=== PATIENT | female | born 1995 ===

== ENCOUNTER 2016-03-19 11:03 | Emergency (ER) | payer SELFPAY ==
[2016-03-19 11:19] VITALS: BP 131/74
--- NOTE | 2016-03-19 12:01 | UC ---
Abdominal Pain Female HPI - HPI Summary HPI Summary: 3 EPISODES OF EPIGASTRIC PAIN OVER THE PAST SEVERAL MONTHS. HAS BEEN DIAGNOSED WITH GASTRITIS IN THE PAST. OMEPRAZOLE HELPS BUT SX RETURN. SX ARE WORSE AFTER EATING AND WHEN LAYING DOWN. HAS NAUSEA AND VOMITED 3 TIMES OVER PAST WEEK AND A HALF. - History of Current Complaint Chief Complaint: UCGI Stated Complaint: STOMACH COMPLAINT Time Seen by Provider: 03/19/16 11:59 Hx Obtained From: Patient Hx Last Menstrual Period: pcos, 01/12/16 Onset/Duration: Gradual Onset, Lasting Weeks, Still Present Timing: Intermittent Episodes Lasting: Severity Initially: Moderate Severity Currently: Moderate Pain Intensity: 0 Pain Scale Used: 0-10 Numeric Location: Epigastric Radiates: Yes Radiates to: Chest Character: Burning Aggravating Factor(s): Food, Other: - LAYING FLAT Alleviating Factor(s): Antacids Associated Signs and Symptoms: Positive: Decreased Appetite, Nausea, Vomiting Allergies/Adverse Reactions: Allergies Allergy/AdvReac Type Severity Reaction Status Date / Time No Known Allergies Allergy Verified 03/19/16 11:19 Home Medications: Home Medications Bismuth Subsalicylate [Pepto Bismol] 262 mg PO 03/19/16 [History] PMH/Surg Hx/FS Hx/Imm Hx Endocrine History Of: Denies: Diabetes, Thyroid Disease Cardiovascular History Of: Denies: Cardiac Disorders, Hypertension Respiratory History Of: Denies: COPD, Asthma GI/ History Of: Denies: Ulcer - Surgical History Surgical History: None - Family History Known Family History: Negative: Hypertension, Diabetes - Social History Alcohol Use: Occasionally Substance Use Type: Marijuana Substance Use Comment - Amount & Last Used: qod Smoking Status (MU): Never Smoked Tobacco Review of Systems Constitutional: Negative Respiratory: Negative Cardiovascular: Negative Gastrointestinal: Abdominal Pain, Vomiting, Other - NAUSEA Genitourinary: Negative All Other Systems Reviewed And Are Negative: Yes Physical Exam Triage Information Reviewed: Yes Appearance: Well-Appearing, No Pain Distress, Well-Nourished Vital Signs: Initial Vital Signs Temp 98.9 F 03/19/16 11:13 Pulse 84 03/19/16 11:13 Resp 18 03/19/16 11:13 BP 131/74 03/19/16 11:13 Pulse Ox 100 03/19/16 11:13 Vital Signs Reviewed: Yes Eyes: Positive: Conjunctiva Clear ENT: Positive: Hearing grossly normal Neck: Positive: Supple Respiratory Exam: Normal Cardiovascular Exam: Normal Abdomen Description: Positive: Soft, Other: - TTP EPIGASTRIC AREA. Negative: CVA Tenderness (R), CVA Tenderness (L), Distended, Guarding Bowel Sounds: Positive: Present Musculoskeletal: Positive: No Edema Neurological: Positive: Alert Psychological: Positive: Age Appropriate Behavior Skin: Negative: rashes Abd Pain Female Course/Dx - Differential Dx/Diagnosis Provider Diagnoses: REFLUX Discharge - Discharge Plan Condition: Stable Disposition: HOME Prescriptions: Omeprazole 40 mg PO DAILY #30 cap Patient Education Materials: Gastroesophageal Reflux Disease (ED) Referrals: Melo Tamayo MD [Medical Doctor] - 2 Weeks Additional Instructions: FOLLOW-UP WITH GI.
== END 2016-03-19 12:23 | disposition home or self-care (01) ==
LOC: UCEAST 11:03
DX: K21.9 Gastro-esophageal reflux disease without esophagitis (principal); F12.90 Cannabis use, unspecified, uncomplicated
CPT/HCPCS: 99202; G0463

== ENCOUNTER 2018-05-13 10:22 | Emergency (ER) | payer OTHER ==
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
[2018-05-13] MEDS ORDERED: Cyclobenzaprine TAB* 10 MG PO ONE (13:13)
[2018-05-13] MEDS ORDERED: Ibuprofen TAB* 600 MG PO ONE (13:13)
[2018-05-13 13:50] VITALS: BP 145/74
== END 2018-05-13 13:50 | disposition home or self-care (01) ==
LOC: ED 10:22
DX: S16.1XXA Strain of muscle, fascia and tendon at neck level, initial encounter (principal); M54.2 Cervicalgia; V89.2XXA Person injured in unspecified motor-vehicle accident, traffic, initial encounter; Y92.9 Unspecified place or not applicable; K21.9 Gastro-esophageal reflux disease without esophagitis; F32.9 Major depressive disorder, single episode, unspecified; F41.0 Panic disorder [episodic paroxysmal anxiety]
CPT/HCPCS: 36415; 72125; 84702; 99282; A9270-GY